=== PATIENT | male | born 1965 | race Caucasian/White ===

== ENCOUNTER 2017-12-03 16:14 | Emergency (ER) | payer OTHER ==
[~2017-12-03] VITALS: Wt 63.5 kg
[~2017-12-03 16:14] MED LIST: AMOXICILLIN500 MG PO; IBU-8800 MG PO; MEDROL DOSEPAK4 MG PO; REMERON45 MG PO; TRAMADOL HCL50 MG PO; VICODIN 5/500 505 MG PO; ZITHROMAX Z PA250 MG PO; ZOFRAN ODT4 MG SL; [UNRECOGNIZED DRUG - REMARK]
[2017-12-03 16:19] VITALS: BP 132/80
[2017-12-03] MEDS ORDERED: Motrin,Rufen800 MG PO (16:43)
[2017-12-07] MEDS ORDERED: CIPRO500 MG PO (18:53)
[2017-12-07] MEDS ORDERED: GABAPENTIN250 MG/5 M PO (19:01)
== END 2017-12-03 16:47 | disposition home or self-care (01) ==
LOC: ED 16:14
DX: M96.830 Postprocedural hemorrhage of a musculoskeletal structure following a musculoskeletal system procedure (principal); Z98.890 Other specified postprocedural states

== ENCOUNTER 2018-07-02 15:04 | Inpatient (IN) | payer OTHER ==
[~2018-07-02] VITALS: Ht 190.5 cm; Wt 68.5 kg
[2018-07-02] VITALS (10 sets, daily range): BP systolic 71–132; BP diastolic 56–96
--- NOTE | ~2018-07-02 | EKG ---
[place], [place] ELECTROCARDIOGRAM REPORT NAME: ROSAURA SEAMAN UNIT #: [id number] ROOM: 405 DOCTOR: ANNA DRAFT REPORT BIRTHDATE: [birth year] [facility] Test Date: 2018-07-02 Test Time: 15:30:32 Pat Name: ROSAURA SEAMAN Department: Room: 405 Gender: M Special Education Tutor: Cynthia Cunningham : 1965 Requested By: BHARATH ALANIS Order Number: [id number] Reading MD: Dixon Amado MD Measurements Intervals [place] Rate: 93 P: 77 UT: 159 QRS: -42 QRSD: 85 T: 80 QT: 363 QTc: 452 Interpretive Statements Sinus rhythm Left axis deviation Probable anteroseptal infarct, old Baseline wander in lead(s) II,III,aVF No previous ECG available for comparison Electronically Signed On 07-03-2018 12:01:46 PST by Dixon Amado MD CM:EKGRPT:ELECTROCARDIOGRAM REPORT 1530 1201 BHARATH CASTILLO DRAFT REPORT BHARATH ALANIS MD
[~2018-07-02 15:04] MED LIST changes: +CIPRO500 MG PO; +GABAPENTIN250 MG/5 M PO; +Motrin,Rufen800 MG PO
[2018-07-02 15:40] LABS: BASO # 0.1 10*3/uL (0.0-0.1); BASO % 0.8 % (0.0-1.0); EOS # 0.3 10*3/uL (0.0-0.4); EOS % 4.4 % (1.0-4.0); HEMATOCRIT 38.3 % (42.0-52.0); LYMPH # 1.5 10*3/uL (1.3-4.4); LYMPH % 23.9 % (27.0-41.0); MEAN CELL VOLUME 89.5 fl (80.0-94.0); MEAN CORPUSCULAR HGB 30.4 pg (27.0-31.0); MEAN CORPUSCULAR HGB CONC 33.9 g/dl (33.0-37.0); MEAN PLATELET VOLUME 8.8 fl (9.6-12.3); MONO # 0.6 10*3/uL (0.1-1.0); MONO % 9.8 % (3.0-9.0); NEUT # 3.9 10*3/uL (2.3-7.9); NEUT % 60.8 % (47.0-73.0); PLATELET COUNT AUTOMATED 227 10*3/uL (130-400); RED BLOOD COUNT 4.28 10*6/uL (4.50-5.90); RED CELL DISTRI WIDTH 12.7 % (0-14.5); WHITE BLOOD COUNT 6.3 10*3/uL (4.8-10.8)
[2018-07-02 15:56] LABS: ACT PARTIAL THROMBO TIME 27.5 SECONDS (20.8-31.5)
[2018-07-02 16:07] LABS: ALBUMIN 3.7 gm/dl (3.1-4.5); ALKALINE PHOSPHATASE 93 U/L (45-117); BUN 13 mg/dl (7-24); CHLORIDE 101 mmol/L (98-107); CREATININE 0.74 mg/dL (0.70-1.30); SGOT/AST 8 IU/L (3-35); SGPT/ALT 14 U/L (12-78); SODIUM 135 mmol/L (136-145); TOTAL PROTEIN 8.3 gm/dL (6.4-8.2)
[2018-07-02 16:10] LABS: TROPONIN I < 0.015 ng/ml (<0.045)
--- NOTE | 2018-07-02 17:38 | NUR ---
DR. ALANIS MADE AWARE SEVERAL TIMES THAT PATIENT AND WOULD LIKE TO SPEAK WITH HIM AND HAVE ASKED FOR PAIN MEDICATION.
--- NOTE | 2018-07-02 18:28 | NUR ---
BED ASSIGNED ... PT NOT READY FOR TRANSPORT TO INPATIENT ROOM. NEEDS WOUND PHOTOS.
--- NOTE | 2018-07-02 18:35 | NUR ---
PER DR. ALANIS... KEEP PATIENT HERE IN ER UNTIL KETAMINE INFUSION IS COMPLETE.
--- NOTE | 2018-07-02 20:15 | NUR ---
A 52, admitted to , under the services of PARDEEP Swan DO with a diagnosis of WOUND OF LEFT LOWER EXTREMITY. Chief complaint is PT. STATES BLOOD PRESSURE LOW THAT IS WHY HE IS HERE. Patient arrived via stretcher from ER. Monitor applied. Initial assessment completed. Vital signs taken and recorded. PARDEEP SWAN DO notified of admission to the unit. Orders received. See assessment for past medical history, medications and allergies. Patient and/or family oriented to unit. [facility] reviewed. Clothing/patient valuable form completed. YOVANY ZIEGLER
--- NOTE | 2018-07-02 20:30 | NUR ---
PT. CONTINUOUSLY COMPLAINING ABOUT BEING HUNGRY; STATING THAT HE HAS NOT HAD ANYTHING TO EAT FOR 5 HOURS. ALSO C/O THE PATIENT IN THE NEXT ROOM WHO IS CONFUSED & YELLING "HELP ME." EDUCATED PATIENT ON BOTH DIET & INFORMED HIM THAT I WOULD GET HIM SOMETHING WHEN I HAD ORDERS FROM THE DOCTOR. PATIENT VERY DEMANDING & UNWILLING TO WAIT.
--- NOTE | 2018-07-02 21:30 | NUR ---
PT. LEFT VIA WHEELCHAIR ACCOMPANIED BY PA & . STABLE.
--- NOTE | 2018-07-02 21:30 | NUR ---
PT. LEFT AMA. DR. JUAREZ AWARE.
--- NOTE | 2018-07-02 21:45 | NUR ---
NURSING STREET INSPECTOR MADE AWARE OF PATIENT LEAVING AMA.
[2018-07-02] MEDS ORDERED: Synthroid,Levo25 MCG PO (22:20)
[2018-07-02] MEDS ORDERED: TRAZODONE50 MG PO (22:21)
[2018-07-02] MEDS ORDERED: DOCUSATE S100 MG/10 PO (22:21)
[2018-07-02] MEDS ORDERED: PROTONIX40 MG PO (22:22)
[2018-07-02] MEDS ORDERED: SUBOXONE 8 MG-1 EACH SL (22:23)
[2018-07-02] MEDS ORDERED: PROMETHAZINE25 M1 PO (22:23)
[2018-07-02] MEDS ORDERED: VISTARIL50 MG PO (22:23)
== END 2018-07-02 21:30 | disposition left against medical advice (07) | DRG 871 ==
LOC: ED 15:04 → EDHOLD 17:47 → 4E 18:12
PROVIDERS: Emergency Medicine; ADMIT Emergency Medicine
DX: A41.9 Sepsis, unspecified organism (principal); L89.893 Pressure ulcer of other site, stage 3; E87.1 Hypo-osmolality and hyponatremia; K52.9 Noninfective gastroenteritis and colitis, unspecified; E86.0 Dehydration; G89.29 Other chronic pain; F41.9 Anxiety disorder, unspecified; F51.01 Primary insomnia; D64.9 Anemia, unspecified; D72.810 Lymphocytopenia; Z53.21 Procedure and treatment not carried out due to patient leaving prior to being seen by health care provider; S81.802D Unspecified open wound, left lower leg, subsequent encounter; Z71.6 Tobacco abuse counseling; Z72.0 Tobacco use; Z85.819 Personal history of malignant neoplasm of unspecified site of lip, oral cavity, and pharynx; Z90.49 Acquired absence of other specified parts of digestive tract; Z85.810 Personal history of malignant neoplasm of tongue; Z80.1 Family history of malignant neoplasm of trachea, bronchus and lung; Z79.899 Other long term (current) drug therapy; Z93.1 Gastrostomy status

== ENCOUNTER → 2018-07-14 | Outpatient (CLI) | payer OTHER ==
[~2018-07-14] MED LIST changes: +DOCUSATE S100 MG/10 PO; +PROMETHAZINE25 M1 PO; +PROTONIX40 MG PO; +SUBOXONE 8 MG-1 EACH SL; +Synthroid,Levo25 MCG PO; +TRAZODONE50 MG PO; +VISTARIL50 MG PO
[2018-07-14 14:36] LABS: BASO # 0.1 10*3/uL (0.0-0.1); EOS # 0.4 10*3/uL (0.0-0.4); EOS % 7.2 % (1.0-4.0); HEMATOCRIT 36.4 % (42.0-52.0); HEMOGLOBIN 12.2 g/dl (14.0-18.0); LYMPH # 1.3 10*3/uL (1.3-4.4); LYMPH % 26.2 % (27.0-41.0); MEAN CELL VOLUME 90.1 fl (80.0-94.0); MEAN CORPUSCULAR HGB 30.2 pg (27.0-31.0); MEAN CORPUSCULAR HGB CONC 33.5 g/dl (33.0-37.0); MONO # 0.4 10*3/uL (0.1-1.0); MONO % 8.8 % (3.0-9.0); NEUT # 2.8 10*3/uL (2.3-7.9); NEUT % 56.6 % (47.0-73.0); PLATELET COUNT AUTOMATED 229 10*3/uL (130-400); RED BLOOD COUNT 4.04 10*6/uL (4.50-5.90); RED CELL DISTRI WIDTH 12.7 % (0-14.5); WHITE BLOOD COUNT 4.9 10*3/uL (4.8-10.8)
[2018-07-14 15:03] LABS: ALBUMIN 3.6 gm/dl (3.1-4.5); ALKALINE PHOSPHATASE 89 U/L (45-117); BUN 8 mg/dl (7-24); CHLORIDE 102 mmol/L (98-107); CREATININE 0.57 mg/dL (0.70-1.30); POTASSIUM 4.1 mmol/L (3.5-5.1); SGOT/AST 7 IU/L (3-35); SGPT/ALT 14 U/L (12-78); SODIUM 136 mmol/L (136-145); TOTAL PROTEIN 8.3 gm/dL (6.4-8.2)
[2018-07-15 08:10] LABS: HEPATITIS B SURFACE AB 006395 Non Reactive (.); HEPATITIS B SURFACE AG Negative (Negative)
[2018-07-15 21:04] LABS: HEPATITIS C QNT HCV Not Detected IU/mL (.)
== END | disposition home or self-care (01) ==
LOC: LAB 13:45
PROVIDERS: Internal Medicine Gastroenterology
DX: B19.20 Unspecified viral hepatitis C without hepatic coma (principal)

== ENCOUNTER 2020-01-11 09:59 | Emergency (ER) | payer OTHER ==
[2020-01-11 10:05] VITALS: BP 128/93
== END 2020-01-11 10:50 | disposition home or self-care (01) ==
LOC: ED 09:59
DX: K94.23 Gastrostomy malfunction (principal); F17.200 Nicotine dependence, unspecified, uncomplicated; Z79.899 Other long term (current) drug therapy; Y83.8 Other surgical procedures as the cause of abnormal reaction of the patient, or of later complication, without mention of misadventure at the time of the procedure; Y92.89 Other specified places as the place of occurrence of the external cause

== ENCOUNTER → 2020-02-17 | Emergency (ER) | payer OTHER ==
[~2020-02-17] VITALS: Ht 190.5 cm; Wt 63.0 kg
[2020-02-17 17:00] VITALS: BP 141/78
== END ==
LOC: ED 16:54
DX: T85.848A Pain due to other internal prosthetic devices, implants and grafts, initial encounter (principal); Z79.899 Other long term (current) drug therapy; X58.XXXA Exposure to other specified factors, initial encounter

== ENCOUNTER 2021-09-29 16:20 | Emergency (ER) | payer OTHER ==
[2021-09-29 17:59] VITALS: BP 110/50
== END 2021-09-29 19:40 | disposition home or self-care (01) ==
LOC: ED 16:20
DX: K94.23 Gastrostomy malfunction (principal); Z79.899 Other long term (current) drug therapy; Z87.891 Personal history of nicotine dependence

== ENCOUNTER 2021-12-02 16:07 | Emergency (ER) | payer OTHER ==
[~2021-12-02] VITALS: Wt 72.6 kg
[2021-12-02 16:12] VITALS: BP 113/63
[2021-12-02] MEDS ORDERED: CLINDAMYCIN HC300 MG PO (17:12)
== END 2021-12-02 17:15 | disposition home or self-care (01) ==
LOC: ED 16:07
DX: K08.89 Other specified disorders of teeth and supporting structures (principal); Z79.899 Other long term (current) drug therapy; Z87.891 Personal history of nicotine dependence

== ENCOUNTER 2022-12-08 21:50 | Emergency (ER) | payer OTHER ==
[~2022-12-08] VITALS: Ht 190.5 cm; Wt 63.5 kg
[~2022-12-08 21:50] MED LIST changes: +CLINDAMYCIN HC300 MG PO
[2022-12-08 23:16] VITALS: BP 129/93
[2022-12-08] MEDS ORDERED: ROXICODONE15 MG PO (23:23)
== END 2022-12-09 01:50 | disposition left against medical advice (07) ==
LOC: ED 21:52
DX: K94.23 Gastrostomy malfunction (principal); F32.A Depression, unspecified; Z98.890 Other specified postprocedural states; F17.200 Nicotine dependence, unspecified, uncomplicated; Y83.8 Other surgical procedures as the cause of abnormal reaction of the patient, or of later complication, without mention of misadventure at the time of the procedure; Y82.8 Other medical devices associated with adverse incidents

== ENCOUNTER 2022-12-10 16:22 | Emergency (ER) | payer OTHER ==
[~2022-12-10] VITALS: Ht 190.5 cm; Wt 64.9 kg
[~2022-12-10 16:22] MED LIST changes: +ROXICODONE15 MG PO
[2022-12-10 16:33] VITALS: BP 118/89
== END 2022-12-10 17:40 | disposition home or self-care (01) ==
LOC: ED 16:22
DX: K94.23 Gastrostomy malfunction (principal); F17.200 Nicotine dependence, unspecified, uncomplicated; Z79.899 Other long term (current) drug therapy; Z98.890 Other specified postprocedural states; Y84.8 Other medical procedures as the cause of abnormal reaction of the patient, or of later complication, without mention of misadventure at the time of the procedure

== ENCOUNTER 2022-12-12 13:12 | Emergency (ER) | payer OTHER ==
[~2022-12-12] VITALS: Ht 180.3 cm; Wt 64.9 kg
[2022-12-12 13:25] VITALS: BP 117/77
[2022-12-12] MEDS ORDERED: TRIPLE PASTE57 GM T (13:44)
[2022-12-12] MEDS ORDERED: CLEOCIN HCL75 MG PO (13:48)
== END 2022-12-12 13:55 | disposition home or self-care (01) ==
LOC: ED 13:12
DX: K94.23 Gastrostomy malfunction (principal); F17.200 Nicotine dependence, unspecified, uncomplicated; Z79.899 Other long term (current) drug therapy; Z98.890 Other specified postprocedural states

== ENCOUNTER → 2023-02-27 | Outpatient (CLI) | payer OTHER ==
[~2023-02-27] MED LIST changes: +CLEOCIN HCL75 MG PO; +TRIPLE PASTE57 GM T
== END | disposition home or self-care (01) ==
LOC: US 13:56
PROVIDERS: ATTEND Nurse Practitioner Family
DX: I82.811 Embolism and thrombosis of superficial veins of right lower extremity (principal); L53.9 Erythematous condition, unspecified; L97.912 Non-pressure chronic ulcer of unspecified part of right lower leg with fat layer exposed; I87.2 Venous insufficiency (chronic) (peripheral)

== ENCOUNTER → 2023-03-03 | Outpatient (CLI) | payer OTHER | END | disposition home or self-care (01) | LOC: WOUNDCARE 04:08 | PROVIDERS: ATTEND Nurse Practitioner Family | DX: L97.312 Non-pressure chronic ulcer of right ankle with fat layer exposed (principal); L89.892 Pressure ulcer of other site, stage 2; I87.2 Venous insufficiency (chronic) (peripheral); L53.9 Erythematous condition, unspecified; R60.9 Edema, unspecified; Z87.891 Personal history of nicotine dependence ==

== ENCOUNTER → 2023-03-10 | Outpatient (CLI) | payer OTHER | END | disposition home or self-care (01) | LOC: WOUNDCARE 03:13 | PROVIDERS: ATTEND Nurse Practitioner Family | DX: L89.892 Pressure ulcer of other site, stage 2 (principal); L97.312 Non-pressure chronic ulcer of right ankle with fat layer exposed; I87.2 Venous insufficiency (chronic) (peripheral); I73.9 Peripheral vascular disease, unspecified; L53.9 Erythematous condition, unspecified; R60.9 Edema, unspecified; Z87.891 Personal history of nicotine dependence ==

== ENCOUNTER → 2023-03-24 | Outpatient (CLI) | payer OTHER | END | disposition home or self-care (01) | LOC: WOUNDCARE 00:31 | PROVIDERS: ATTEND Nurse Practitioner Family | DX: L97.312 Non-pressure chronic ulcer of right ankle with fat layer exposed (principal); L89.892 Pressure ulcer of other site, stage 2; I87.2 Venous insufficiency (chronic) (peripheral); I73.9 Peripheral vascular disease, unspecified; L53.9 Erythematous condition, unspecified; R60.9 Edema, unspecified; Z79.899 Other long term (current) drug therapy ==

== ENCOUNTER → 2023-04-15 | Outpatient (CLI) | payer OTHER | END | disposition home or self-care (01) | LOC: WOUNDCARE 04-14 00:48 | PROVIDERS: ATTEND Nurse Practitioner Family | DX: L97.312 Non-pressure chronic ulcer of right ankle with fat layer exposed (principal); L89.892 Pressure ulcer of other site, stage 2; I87.2 Venous insufficiency (chronic) (peripheral); I73.9 Peripheral vascular disease, unspecified; L53.9 Erythematous condition, unspecified; R60.9 Edema, unspecified; Z87.891 Personal history of nicotine dependence ==

== ENCOUNTER → 2023-04-27 | Outpatient (CLI) | payer OTHER | END | disposition home or self-care (01) | LOC: WOUNDCARE 00:54 | PROVIDERS: ATTEND Nurse Practitioner Family | DX: L97.312 Non-pressure chronic ulcer of right ankle with fat layer exposed (principal); L89.892 Pressure ulcer of other site, stage 2; I87.2 Venous insufficiency (chronic) (peripheral); I73.9 Peripheral vascular disease, unspecified; L53.9 Erythematous condition, unspecified; R60.9 Edema, unspecified; Z87.891 Personal history of nicotine dependence ==

== ENCOUNTER 2023-05-24 17:26 | Emergency (ER) | payer OTHER ==
[~2023-05-24] VITALS: Ht 190.5 cm; Wt 68.0 kg
[2023-05-24 17:36] VITALS: BP 150/84
[2023-05-24 19:59] LABS: BASO # 0.1 10*3/uL (0.0-0.1); BASO % 1.2 % (0.0-1.0); EOS # 0.4 10*3/uL (0.0-0.4); EOS % 8.4 % (1.0-4.0); HEMATOCRIT 40.3 % (42.0-52.0); LYMPH # 0.8 10*3/uL (1.3-4.4); LYMPH % 15.8 % (27.0-41.0); MEAN CELL VOLUME 93.7 fl (80.0-94.0); MEAN CORPUSCULAR HGB 29.1 pg (27.0-31.0); MEAN PLATELET VOLUME 8.5 fl (9.6-12.3); MONO # 0.7 10*3/uL (0.1-1.0); NEUT # 3.2 10*3/uL (2.3-7.9); NEUT % 61.2 % (47.0-73.0); PLATELET COUNT AUTOMATED 304 10*3/uL (130-400); RED CELL DISTRI WIDTH 11.9 % (0-14.5); WHITE BLOOD COUNT 5.1 10*3/uL (4.8-10.8)
[2023-05-24 20:18] LABS: ALKALINE PHOSPHATASE 99 U/L (46-116); BUN 9 mg/dl (9-23); CHLORIDE 101 mmol/L (98-107); POTASSIUM 3.8 mmol/L (3.4-5.1); SGPT/ALT 15 U/L (5-49); TOTAL PROTEIN 7.9 gm/dL (6.0-8.0)
== END 2023-05-24 21:56 | disposition home or self-care (01) ==
LOC: ED 17:26
PROVIDERS: Nurse Practitioner Family
DX: K04.7 Periapical abscess without sinus (principal); R22.9 Localized swelling, mass and lump, unspecified; F32.A Depression, unspecified; Z98.890 Other specified postprocedural states; F17.200 Nicotine dependence, unspecified, uncomplicated

== ENCOUNTER 2024-08-31 20:52 | Emergency (ER) | payer OTHER ==
[~2024-08-31] VITALS: Ht 190.5 cm; Wt 67.7 kg
[2024-08-31 21:08] VITALS: BP 118/81
== END 2024-08-31 21:26 | disposition home or self-care (01) ==
LOC: ED 20:52
DX: K94.23 Gastrostomy malfunction (principal); F32.A Depression, unspecified; F41.9 Anxiety disorder, unspecified; Z79.899 Other long term (current) drug therapy; Z90.89 Acquired absence of other organs; Z98.890 Other specified postprocedural states